=== PATIENT | female | born 1990 | race Caucasian/White ===

== ENCOUNTER 2021-02-05 09:28 | Emergency (ER) | payer OTHER | END 2021-02-05 12:50 | disposition home or self-care (01) | LOC: ER1 09:28 | DX: S93.402A Sprain of unspecified ligament of left ankle, initial encounter (principal); W19.XXXA Unspecified fall, initial encounter; Y92.410 Unspecified street and highway as the place of occurrence of the external cause | CPT/HCPCS: 73610; 99283 ==